=== PATIENT | female | born 1965 | race Caucasian/White ===

== ENCOUNTER → 2017-03-13 | Day surgery (SDC) | payer OTHER ==
[~2017-03-13] VITALS: Ht 154.9 cm; Wt 111.1 kg
[~2017-03-13] MED LIST: ASPIRIN81 M1 PO; BIOTIN PO; CILOXAN 5 ML5 M1 OP; CYMBALTA60 M1 PO; DURAGESIC50 MCG/HR TD; EC NAPROSYN500 MG PO; FLEXERIL10 MG PO; FLEXERIL5 MG PO; LAMISIL250 MG PO; MEDROL DOSEPAK4 MG PO; MORPHINE SULFAT15 MG PO; MOTRIN800 MG PO; MS CONTIN DEVI; MS CONTIN15 MG PO; NEURONTIN600 MG PO; NORFLEX100 MG PO; OXYCODONE15 MG PO; OXYCONTIN40 MG PO; PREDNISONE50 MG PO; PRILOSEC; PRILOSEC20 M2 PO; PROCARDIA XL30 MG PO; PROZAC40 M1 PO; REQUIP0.5 MG PO; VALIUM5 MG PO; VICODIN 5/500 505 MG PO; VICODIN ES 7501 TAB PO; ZYRTEC10 MG PO
--- NOTE | ~2017-03-13 | O ---
[place], [place] OPERATIVE NOTE NAME: JENNIFER RODRIGUEZ UNIT #: [id number] ROOM: DOCTOR: DEVANG ANDERSON MD BIRTHDATE: [birth year] DOS: 03/13/2017 PREOPERATIVE DIAGNOSIS: Chronic otitis media with effusion. POSTOPERATIVE DIAGNOSIS: Chronic otitis media with effusion. OPERATION: BMT. SURGEON: Dr. Anderson. ANESTHESIA: General. OPERATIVE FINDINGS AND PROCEDURE: The patient was taken to the operating room for BMT. Following induction of general anesthesia, the patient was positioned supine on the OR table and draped in the standard fashion for ear surgery. The surgical microscope was brought into the operative field. The right ear was examined. Myringotomy was performed. Standard Kory tympanostomy tube was inserted, and topical Ciprofloxacin drops were instilled. Next, the left ear was examined. Left myringotomy was performed. Standard Kory tympanostomy tube was inserted, and topical Ciprofloxacin drops were instilled. The patient tolerated the procedure well, was awakened, and transported to PACU in satisfactory condition. DEVANG ANDESRON MD CM:OPRECORD:OPERATIVE NOTE [id number] DEVANG ANDERSON MD 03/14/17 1149 interface
[2017-03-13 12:04] VITALS: BP 124/64
[2017-03-13 13:05] VITALS: BP 133/83
[2017-03-13 13:20] VITALS: BP 142/90
[2017-03-13 13:40] VITALS: BP 147/67
== END | disposition home or self-care (01) ==
LOC: SDC 03-08 12:30
DX: H65.493 Other chronic nonsuppurative otitis media, bilateral (principal); F32.9 Major depressive disorder, single episode, unspecified; K21.9 Gastro-esophageal reflux disease without esophagitis; Z98.890 Other specified postprocedural states; F17.210 Nicotine dependence, cigarettes, uncomplicated; Z98.51 Tubal ligation status

== ENCOUNTER 2017-09-21 07:39 | Emergency (ER) | payer MEDICARE ==
[~2017-09-21] VITALS: Ht 154.9 cm; Wt 112.0 kg
== END 2017-09-21 09:29 | disposition home or self-care (01) ==
LOC: ED 07:39
DX: R07.81 Pleurodynia (principal); F17.200 Nicotine dependence, unspecified, uncomplicated; E66.01 Morbid (severe) obesity due to excess calories; J44.9 Chronic obstructive pulmonary disease, unspecified; G89.29 Other chronic pain; Z98.890 Other specified postprocedural states; Z98.51 Tubal ligation status; Z79.899 Other long term (current) drug therapy; Z88.8 Allergy status to other drugs, medicaments and biological substances; Z79.82 Long term (current) use of aspirin

== ENCOUNTER → 2019-01-21 | Outpatient (CLI) | payer MEDICARE ==
[2019-01-22 08:10] LABS: ALPHA-1-ANTITRYPSIN, SERUM 160 mg/dL (90-200)
== END | disposition home or self-care (01) ==
LOC: LAB 12:15
PROVIDERS: Internal Medicine Critical Care Medicine
DX: J44.9 Chronic obstructive pulmonary disease, unspecified (principal)

== ENCOUNTER 2019-06-09 17:55 | Emergency (ER) | payer MEDICARE ==
[~2019-06-09] VITALS: Wt 113.4 kg
--- NOTE | ~2019-06-09 | EKG ---
[place], [place] ELECTROCARDIOGRAM REPORT NAME: JENNIFER RODRIGUEZ UNIT #: [id number] ROOM: DOCTOR: CALE DRAFT REPORT BIRTHDATE: [birth year] [facility] Test Date: 2019-06-09 Test Time: 20:07:08 Pat Name: JENNIFER RODRIGUEZ Department: Room: Gender: F Sightseeing Guide: SS RESP : 1965 Requested By: LEOLA BOWER Order Number: [id number] Reading MD: Delroy Landrum MD Measurements Intervals [place] Rate: 92 P: 49 MD: 168 QRS: 101 QRSD: 88 T: 37 QT: 386 QTc: 478 Interpretive Statements Sinus rhythm Right axis deviation Low voltage, precordial leads Borderline T abnormalities, anterior leads Electronically Signed On 06-10-2019 11:52:29 PDT by Delroy Landrum MD CM:EKGRPT:ELECTROCARDIOGRAM REPORT 06 115 LEOLA ORTEZ DRAFT REPORT LEOLA BOWER DO
[2019-06-09 19:40] LABS: BASO % 0.4 % (0.0-1.0); EOS # 0.1 10*3/uL (0.0-0.4); EOS % 1.4 % (1.0-4.0); HEMATOCRIT 41.6 % (37.0-47.0); HEMOGLOBIN 12.5 g/dl (12.0-16.0); LYMPH # 1.2 10*3/uL (1.3-4.4); LYMPH % 12.8 % (27.0-41.0); MEAN CELL VOLUME 84.7 fl (81.0-99.0); MEAN CORPUSCULAR HGB 25.5 pg (27.0-31.0); MEAN PLATELET VOLUME 10.9 fl (9.6-12.3); MONO # 0.3 10*3/uL (0.1-1.0); MONO % 3.1 % (3.0-9.0); NEUT # 7.4 10*3/uL (2.3-7.9); NEUT % 82.1 % (47.0-73.0); PLATELET COUNT AUTOMATED 147 10*3/uL (130-400); RED BLOOD COUNT 4.91 10*6/uL (4.10-5.10); RED CELL DISTRI WIDTH 17.1 % (0-14.5); WHITE BLOOD COUNT 9.1 10*3/uL (4.8-10.8)
[2019-06-09 19:55] LABS: ALBUMIN 3.4 gm/dl (3.1-4.5); ALKALINE PHOSPHATASE 88 U/L (45-117); BUN 7 mg/dl (7-24); CHLORIDE 104 mmol/L (98-107); CREATININE 0.93 mg/dL (0.55-1.02); LIPASE 38 U/L (73-393); POTASSIUM 4.4 mmol/L (3.5-5.1); SGOT/AST 23 IU/L (3-35); SGPT/ALT 20 U/L (12-78); SODIUM 140 mmol/L (136-145); TROPONIN I < 0.015 ng/ml (<0.045)
[2019-06-09 20:26] LABS: ACT PARTIAL THROMBO TIME 26.5 SECONDS (20.0-32.1); INTERNATIONAL NORM RATIO 1.1 (2.0-3.5)
[2019-06-09 20:43] LABS: BILIRUBIN NEGATIVE (NEGATIVE); BLOOD 1+ (NEGATIVE); CLARITY CLEAR (CLEAR); COLOR YELLOW (YELLOW); GLUCOSE NEGATIVE (NEGATIVE); KETONE NEGATIVE (NEGATIVE); LEUKO ESTERASE 1+ (NEGATIVE); NITRITE NEGATIVE (NEGATIVE); SPECIFIC GRAVITY <= 1.005 (1.005-1.030)
[2019-06-09 21:10] LABS: EPITHELIAL CELLS 21-30
[2019-06-09 21:11] LABS: BACTERIA 1+
== END 2019-06-09 22:00 | disposition home or self-care (01) ==
LOC: ED 17:55
PROVIDERS: Student in an Organized Health Care Education/Training Program
DX: E11.649 Type 2 diabetes mellitus with hypoglycemia without coma (principal); R79.1 Abnormal coagulation profile; F17.200 Nicotine dependence, unspecified, uncomplicated; Z88.8 Allergy status to other drugs, medicaments and biological substances

== ENCOUNTER 2019-06-29 14:10 | Inpatient (IN) | payer MEDICARE ==
[~2019-06-29] VITALS: Ht 154.9 cm; Wt 96.7 kg
--- NOTE | ~2019-06-29 | EKG ---
[place], [place] ELECTROCARDIOGRAM REPORT NAME: JENNIFER RODRIGUEZ UNIT #: [id number] ROOM: 530 DOCTOR: CALE DRAFT REPORT BIRTHDATE: [birth year] [facility] Test Date: 2019-06-29 Test Time: 15:12:15 Pat Name: JENNIFER RODRIGUEZ Department: Room: 530 Gender: F Breaker Machine Operator: ROGER : 1965 Requested By: THAI RAM Order Number: [id number] Reading MD: Delroy Landrum MD Measurements Intervals [place] Rate: 90 P: 50 VT: 175 QRS: 96 QRSD: 86 T: 29 QT: 364 QTc: 446 Interpretive Statements Sinus rhythm Borderline right axis deviation Low voltage, precordial leads Borderline T abnormalities, anterior leads Compared to ECG 06/09/2019 20:07:08 No significant changes Electronically Signed On 06-30-2019 10:56:02 PDT by Delroy Landrum MD CM:EKGRPT:ELECTROCARDIOGRAM REPORT 1512 1056 THAI MADSEN DRAFT REPORT THAI GLOVER
[2019-06-29 14:29] VITALS: BP 151/64
--- NOTE | 2019-06-29 14:40 | NUR ---
PATIENT DENIES ANY WOUNDS. PATIENT DOES HAVE SCAB TO R UPPER AMES AREA.
[2019-06-29 15:10] LABS: BASO % 0.5 % (0.0-1.0); EOS # 0.2 10*3/uL (0.0-0.4); EOS % 2.3 % (1.0-4.0); HEMATOCRIT 38.9 % (37.0-47.0); HEMOGLOBIN 11.7 g/dl (12.0-16.0); LYMPH # 1.4 10*3/uL (1.3-4.4); LYMPH % 17.5 % (27.0-41.0); MEAN CELL VOLUME 85.3 fl (81.0-99.0); MEAN CORPUSCULAR HGB 25.7 pg (27.0-31.0); MEAN CORPUSCULAR HGB CONC 30.1 g/dl (33.0-37.0); MEAN PLATELET VOLUME 9.4 fl (9.6-12.3); MONO # 0.3 10*3/uL (0.1-1.0); MONO % 3.5 % (3.0-9.0); NEUT # 5.9 10*3/uL (2.3-7.9); NEUT % 75.9 % (47.0-73.0); PLATELET COUNT AUTOMATED 164 10*3/uL (130-400); RED BLOOD COUNT 4.56 10*6/uL (4.10-5.10); RED CELL DISTRI WIDTH 17.3 % (0-14.5); WHITE BLOOD COUNT 7.8 10*3/uL (4.8-10.8)
[2019-06-29 15:20] LABS: ACT PARTIAL THROMBO TIME 25.6 SECONDS (20.0-32.1)
[2019-06-29 15:25] LABS: ALBUMIN 3.3 gm/dl (3.1-4.5); ALKALINE PHOSPHATASE 86 U/L (45-117); BUN 9 mg/dl (7-24); CHLORIDE 101 mmol/L (98-107); CREATININE 0.86 mg/dL (0.55-1.02); LIPASE 42 U/L (73-393); POTASSIUM 4.1 mmol/L (3.5-5.1); SGOT/AST 24 IU/L (3-35); SGPT/ALT 20 U/L (12-78); SODIUM 138 mmol/L (136-145); TOTAL PROTEIN 7.5 gm/dL (6.4-8.2)
--- NOTE | 2019-06-29 15:27 | NUR ---
GLUCOSE IS 43 AT THIS TIME CALLED CRITICAL RESULT AT THIS TIME. THAI GLOVER NOTIFIED.
[2019-06-29 15:28] LABS: TROPONIN I < 0.015 ng/ml (<0.045)
--- NOTE | 2019-06-29 17:10 | NUR ---
PATIENT BLOOD GLUCOSE IS 211 AT THIS TIME. THAI GLOVER NOTIFIED.
--- NOTE | 2019-06-29 18:24 | NUR ---
PATIENT TAKEN TO 5TH FLOOR AT THIS TIME BY THIS NURSE AND CLAIRE SPARROW.
[2019-06-29 18:28] VITALS: BP 135/83
--- NOTE | 2019-06-29 18:30 | NUR ---
Time: 1829 A 53 year old FEMALE PATIENT admitted to 5E under services of LENCHO VAUGNH DO. Pt. arrived via CART from ER. Chief complaint: LOW BLOOD SUGAR. PATIENT WAS UNSURE OF CURRENT MEDICATIONS, SHE STATED MEDICATION LIST WAS GIVEN TO THE DR. BABIN THEY MADE COPY OF IT. KEDAR MAHMOOD
--- NOTE | 2019-06-29 18:41 | NUR ---
MSADMTime: N A 53 year old FEMALE admitted to 5E under services of LENCHO VAUGHN DO. Pt. arrived via bed from ER. Chief complaint: HYPOGLYCEMIA. NICOL GONZALES
[2019-06-29 20:00] VITALS: BP 125/54
[2019-06-29] MEDS ORDERED: GLIPIZIDE10 M2 PO (21:40)
[2019-06-29] MEDS ORDERED: ASPIR LOW81 MG PO (21:40)
[2019-06-29] MEDS ORDERED: ROPINIROLE HYDRO3 MG PO (21:41)
[2019-06-29] MEDS ORDERED: PROAIR HFA8.5 GM INH (21:41)
[2019-06-29] MEDS ORDERED: GABAPENTIN600 MG PO (21:41)
[2019-06-29] MEDS ORDERED: AVPAK METFORMI500 M1 PO (21:42)
[2019-06-29] MEDS ORDERED: LEVEMIR FL100 UNIT/1 SC (21:44)
[2019-06-29] MEDS ORDERED: SPIRIVA RESPIMAT4 GM INH (21:44)
[2019-06-29] MEDS ORDERED: SYMB160 INH (21:44)
[2019-06-29] MEDS ORDERED: BUPROPION HCL200 MG PO (21:45)
[2019-06-29] MEDS ORDERED: TRINTELLIX20 MG PO (21:45)
[2019-06-29] MEDS ORDERED: DOCUSATE SOD100 MG PO (21:45)
[2019-06-29] MEDS ORDERED: HUMALOG100 UNIT/1 SQ (21:46)
[2019-06-29] MEDS ORDERED: PANTOPRAZOLE SO40 MG PO (21:46)
[2019-06-29] MEDS ORDERED: CHANTIX1 M1 PO (21:47)
[2019-06-29] MEDS ORDERED: 'CLONIDINE0.1 MG PO (21:47)
[2019-06-29] MEDS ORDERED: BACLOFEN5 MG PO (21:49)
[2019-06-30] VITALS: BP 108/56
--- NOTE | 2019-06-30 00:19 | NUR ---
24 HR. CHART CHECK COMPLETE.
[2019-06-30 00:20] LABS: BILIRUBIN NEGATIVE (NEGATIVE); BLOOD NEGATIVE (NEGATIVE); CLARITY SL CLOUDY (CLEAR); COLOR YELLOW (YELLOW); GLUCOSE NEGATIVE (NEGATIVE); KETONE NEGATIVE (NEGATIVE); LEUKO ESTERASE 2+ (NEGATIVE); NITRITE NEGATIVE (NEGATIVE); PH 6.5 (5.0-9.0); SPECIFIC GRAVITY 1.015 (1.005-1.030)
[2019-06-30 00:27] LABS: BACTERIA 1+; EPITHELIAL CELLS TNTC; WBC 21-30 wbc/hpf (0-5)
[2019-06-30 06:39] LABS: BASO % 0.4 % (0.0-1.0); EOS # 0.1 10*3/uL (0.0-0.4); EOS % 2.4 % (1.0-4.0); HEMATOCRIT 36.8 % (37.0-47.0); HEMOGLOBIN 11.1 g/dl (12.0-16.0); LYMPH # 1.3 10*3/uL (1.3-4.4); LYMPH % 25.7 % (27.0-41.0); MEAN CELL VOLUME 84.2 fl (81.0-99.0); MEAN CORPUSCULAR HGB 25.4 pg (27.0-31.0); MEAN CORPUSCULAR HGB CONC 30.2 g/dl (33.0-37.0); MEAN PLATELET VOLUME 10.4 fl (9.6-12.3); MONO # 0.2 10*3/uL (0.1-1.0); MONO % 3.9 % (3.0-9.0); NEUT # 3.3 10*3/uL (2.3-7.9); NEUT % 67.4 % (47.0-73.0); PLATELET COUNT AUTOMATED 148 10*3/uL (130-400); RED BLOOD COUNT 4.37 10*6/uL (4.10-5.10); RED CELL DISTRI WIDTH 17.1 % (0-14.5); WHITE BLOOD COUNT 4.9 10*3/uL (4.8-10.8)
[2019-06-30 06:45] LABS: ALBUMIN 3.2 gm/dl (3.1-4.5); ALKALINE PHOSPHATASE 82 U/L (45-117); BUN 8 mg/dl (7-24); CHLORIDE 103 mmol/L (98-107); CHOLESTEROL 161 mg/dL (<200); CREATININE 0.87 mg/dL (0.55-1.02); PHOSPHOROUS 4.4 mg/dL (2.5-4.9); POTASSIUM 4.3 mmol/L (3.5-5.1); SGOT/AST 25 IU/L (3-35); SGPT/ALT 20 U/L (12-78); SODIUM 138 mmol/L (136-145); TOTAL PROTEIN 7.2 gm/dL (6.4-8.2); TRIGLYCERIDES 121 mg/dl (<150); VLDL CHOLESTEROL 24 mg/dL (6-40)
[2019-06-30 06:46] LABS: HDL CHOLESTEROL 35 mg/dl (40-60); LDL CHOLESTEROL 102 mg/dL (9-159)
[2019-06-30 07:36] LABS: VITAMIN D, 25-HYDROXY 37.2 ng/mL (30-100)
[2019-06-30 08:00] VITALS: BP 135/46
--- NOTE | 2019-06-30 10:07 | NUR ---
Occupational therapy orders received this date, 06/30/19. Occupational therapy orders to be discharged at this time secondary to patient being independent in ADLs and functional transfers/mobility, per patient. Patient was educated on occupational therapy evaluation and stated "As long as my blood sugars okay, I'm fine. That's what I'm here for." Thank you for the referral. Roro Floyd OTR/Kelsy
--- NOTE | 2019-06-30 10:22 | NUR ---
PT RESTING IN BED. NO DISTRESS NOTED. NO VOICED C/O. WILL MONITOR
--- NOTE | 2019-06-30 11:12 | NUR ---
PHYSICAL THERAPY Physical therapy evaluation offered, screen complete. Patient stating, "I'm fine as long as my blood sugar is okay. That's what I'm here for." Patient reporting no PT needs at this time. Discharge PT orders. Thank you. Yuko Griffin,PT,DPT.
[2019-06-30 12:00] VITALS: BP 146/61
[2019-06-30] MEDS ORDERED: LEVEMIR FL100 UNIT/1 SC (13:31)
--- NOTE | 2019-06-30 15:31 | NUR ---
PT REQUESTED AND GIVEN TYLENOL FOR C/O HEADACHE WILL MONITOR
--- NOTE | 2019-06-30 15:34 | NUR ---
Discharge instructions reviewed with patient/family. Patient receptive and verbalizes understanding. Follow-up care arranged. Written instructions given to patient/family. LUPE EUGENE
== END 2019-06-30 15:34 | disposition home or self-care (01) | DRG 638 ==
LOC: ED 14:10 → EDHOLD 17:33 → 5E 18:10
PROVIDERS: Family Medicine; Physician Assistant; ADMIT Internal Medicine
DX: E11.649 Type 2 diabetes mellitus with hypoglycemia without coma (principal); Z68.41 Body mass index [BMI] 40.0-44.9, adult; I10 Essential (primary) hypertension; J44.9 Chronic obstructive pulmonary disease, unspecified; G25.81 Restless legs syndrome; E11.42 Type 2 diabetes mellitus with diabetic polyneuropathy; E55.9 Vitamin D deficiency, unspecified; K21.9 Gastro-esophageal reflux disease without esophagitis; E66.01 Morbid (severe) obesity due to excess calories; S80.811A Abrasion, right lower leg, initial encounter; S80.212A Abrasion, left knee, initial encounter; X58.XXXA Exposure to other specified factors, initial encounter; Y93.89 Activity, other specified; Y92.89 Other specified places as the place of occurrence of the external cause; Z79.4 Long term (current) use of insulin; Y99.8 Other external cause status; Z88.8 Allergy status to other drugs, medicaments and biological substances; Z98.891 History of uterine scar from previous surgery; Z98.51 Tubal ligation status; Z83.3 Family history of diabetes mellitus; Z79.82 Long term (current) use of aspirin; Z79.899 Other long term (current) drug therapy

== ENCOUNTER → 2019-07-18 | Outpatient (CLI) | payer MEDICARE ==
[~2019-07-18] MED LIST changes: +'CLONIDINE0.1 MG PO; +ASPIR LOW81 MG PO; +AVPAK METFORMI500 M1 PO; +BACLOFEN5 MG PO; +BUPROPION HCL200 MG PO; +CHANTIX1 M1 PO; +DOCUSATE SOD100 MG PO; +GABAPENTIN600 MG PO; +GLIPIZIDE10 M2 PO; +HUMALOG100 UNIT/1 SQ; +LEVEMIR FL100 UNIT/1 SC; +PANTOPRAZOLE SO40 MG PO; +PROAIR HFA8.5 GM INH; +ROPINIROLE HYDRO3 MG PO; +SPIRIVA RESPIMAT4 GM INH; +SYMB160 INH; +TRINTELLIX20 MG PO
--- NOTE | ~2019-07-18 | PF ---
[place], [place] PULMONARY FUNCTION TEST NAME[id number] UNIT #: [id number] ROOM: DOCTOR: COURTNEY DYSON MD,JCARLOS BIRTHDATE: [birth year] DOS: 07/18/2019 PULMONARY FUNCTION TEST Test was ordered by Rosales Lynn. HISTORY: The patient recorded as a 53-year-old female, height of 61 inches, weight of 214 pounds. The patient reported diagnosis of COPD. Symptoms reported as shortness of breath with exertion. The patient noted active tobacco use, half a pack of cigarettes per day for 45 years. SPIROMETRY: FVC recorded 2.07 liters as 69% predicted value. FEV1 was 1.40 liters, 57% predicted value. Post-bronchodilator, FEV1/FVC recorded 69%. No changes occurred postbronchodilator. Flow volume loop was suggestive of obstructive lung disease. LUNG VOLUME: Thoracic gas volume recorded as 93%, residual volume 129%, total lung capacity 95%. RV/TLC ratio 139%. The patient's lung diffusion noted mildly decreased without correction of carbon monoxide hemoglobin values. Mildly abnormal airway resistance and passive conductance were noted. FINAL IMPRESSION: Current test was noted finding consistent with moderate COPD. Clinical correlation would be advised. JCARLOS VALDEZ MD CM:PFREPORT:PULMONARY FUNCTION TEST 1251 1701 JCARLOS DYSON MD
== END | disposition home or self-care (01) ==
LOC: CP 11:53
DX: J44.9 Chronic obstructive pulmonary disease, unspecified (principal)

== ENCOUNTER 2019-09-22 11:23 | Inpatient (IN) | payer MEDICARE ==
[~2019-09-22] VITALS: Ht 154.9 cm; Wt 86.4 kg
[2019-09-22 11:26] VITALS: BP 130/69
[2019-09-22 11:45] LABS: BASO # 0.1 10*3/uL (0.0-0.1); BASO % 0.4 % (0.0-1.0); EOS # 0.1 10*3/uL (0.0-0.4); LYMPH # 2.6 10*3/uL (1.3-4.4); LYMPH % 20.8 % (27.0-41.0); MEAN CELL VOLUME 86.6 fl (81.0-99.0); MEAN PLATELET VOLUME 11.9 fl (9.6-12.3); MONO # 0.5 10*3/uL (0.1-1.0); MONO % 3.8 % (3.0-9.0); NEUT # 9.2 10*3/uL (2.3-7.9); NEUT % 73.5 % (47.0-73.0); PLATELET COUNT AUTOMATED 174 10*3/uL (130-400); RED BLOOD COUNT 4.62 10*6/uL (4.10-5.10); RED CELL DISTRI WIDTH 18.5 % (0-14.5); WHITE BLOOD COUNT 12.5 10*3/uL (4.8-10.8)
[2019-09-22 11:56] LABS: ACT PARTIAL THROMBO TIME 26.7 SECONDS (20.0-32.1); INTERNATIONAL NORM RATIO 1.1 (2.0-3.5)
[2019-09-22 12:03] LABS: ALBUMIN 3.3 gm/dl (3.1-4.5); ALKALINE PHOSPHATASE 95 U/L (45-117); BUN 9 mg/dl (7-24); CHLORIDE 101 mmol/L (98-107); CREATININE 1.16 mg/dL (0.55-1.02); POTASSIUM 3.6 mmol/L (3.5-5.1); SGOT/AST 38 IU/L (3-35); SGPT/ALT 23 U/L (12-78); SODIUM 136 mmol/L (136-145)
[2019-09-22 12:07] LABS: TROPONIN I < 0.015 ng/ml (<0.045)
[2019-09-22 13:15] VITALS: BP 129/71
[2019-09-22 14:00] VITALS: BP 130/68
--- NOTE | 2019-09-22 14:00 | NUR ---
A 54, admitted to , under the services of LENCHO Vaughn DO with a diagnosis of arf and hypoxia. Chief complaint is shortness of breath. Patient arrived via bed from ER. Monitor applied. Initial assessment completed. Vital signs taken and recorded. LENCHO VAUGHN DO notified of admission to the unit. Orders received. See assessment for past medical history, medications and allergies. Patient and/or family oriented to unit. [facility] visitation policy reviewed. Clothing/patient valuable form completed. MARCO BAINS
--- NOTE | 2019-09-22 14:25 | NUR ---
PT REFUSED ABG
--- NOTE | 2019-09-22 14:37 | NUR ---
NOTIFIED DR VALDEZ OF NEW CONSULT FOR ACUTE RESPITORY DISTRESS.NOTIFIED HIM THAT PT REFUSED ABG'S. PER DR VALDEZ I WAS TO RETURN AND TELL PT TO HAVE ABG'S DONE PER HIS REQUEST. UPON SPEAKING TO PT PT STATES "NO". PT REFUSES ABG'S AGAIN.
[2019-09-22] MEDS ORDERED: SYMB160 INH (15:42)
[2019-09-22] MEDS ORDERED: VITAMIN D32000 UNI1 PO (15:43)
[2019-09-22] MEDS ORDERED: LEVEMIR100 UNIT/1 SC (15:50)
--- NOTE | 2019-09-22 15:50 | NUR ---
MEDS RECONCILED AT BEDSIDE WITH PT AND MED CLAIM HISTORY.
--- NOTE | 2019-09-22 15:53 | NUR ---
NOTIFIED DR CAT'S MED REC COMPLETE.
[2019-09-22 16:00] VITALS: BP 128/68
--- NOTE | 2019-09-22 19:00 | NUR ---
ASSUMED CARE FOR THIS PT AT THIS TIME. PT RESTING QUIETLY IN BED. NO C/O VOICED. CALL LIGHT IN REACH.
[2019-09-22 20:00] VITALS: BP 121/65
[2019-09-23] VITALS: BP 110/58
[2019-09-23 06:22] LABS: BASO % 0.2 % (0.0-1.0); HEMATOCRIT 38.8 % (37.0-47.0); HEMOGLOBIN 11.2 g/dl (12.0-16.0); LYMPH # 0.7 10*3/uL (1.3-4.4); LYMPH % 12.3 % (27.0-41.0); MEAN CELL VOLUME 87.6 fl (81.0-99.0); MEAN CORPUSCULAR HGB 25.3 pg (27.0-31.0); MEAN CORPUSCULAR HGB CONC 28.9 g/dl (33.0-37.0); MEAN PLATELET VOLUME 11.6 fl (9.6-12.3); MONO # 0.1 10*3/uL (0.1-1.0); MONO % 0.9 % (3.0-9.0); NEUT # 4.6 10*3/uL (2.3-7.9); PLATELET COUNT AUTOMATED 148 10*3/uL (130-400); RED BLOOD COUNT 4.43 10*6/uL (4.10-5.10); RED CELL DISTRI WIDTH 18.5 % (0-14.5); WHITE BLOOD COUNT 5.3 10*3/uL (4.8-10.8)
[2019-09-23 06:23] LABS: BUN 11 mg/dl (7-24); CHLORIDE 106 mmol/L (98-107); CREATININE 0.81 mg/dL (0.55-1.02); PHOSPHOROUS 3.4 mg/dL (2.5-4.9); POTASSIUM 3.9 mmol/L (3.5-5.1); SODIUM 141 mmol/L (136-145)
[2019-09-23 08:00] VITALS: BP 128/88
--- NOTE | 2019-09-23 09:00 | NUR ---
Magnetic Observer in to talk to patient. Patient states lives at home with ex . There are few steps in the home. Physician: ralph harris [facility]acy: [facility] Home health services: none Patient's level of ADLs: INDEPENDENT Patient has working utilities: all working DME: none Follow-up physician's appointment after d/c: will be made by hospitalist nurse director upon discharge Does patient want to access PORTAL?: no Discharge plan discussed with patient, she lives at home with ex she is independent in adls and ambulation, she states she will return home when medically stable and denies any home needs. TYLER QUINTERO
[2019-09-23 12:00] VITALS: BP 129/77
--- NOTE | 2019-09-23 13:54 | NUR ---
PT TEETH DELIVERED TO HER BY JORGE ANDERSON.CURRENTLY IN PT MOUTH.
[2019-09-23 16:00] VITALS: BP 113/58
[2019-09-23 20:00] VITALS: BP 109/72
[2019-09-24] VITALS: BP 128/68
--- NOTE | 2019-09-24 04:46 | NUR ---
24 HR chart check completed.
[2019-09-24 05:07] LABS: EOS % 0.1 % (1.0-4.0); HEMOGLOBIN 11.1 g/dl (12.0-16.0); LYMPH # 0.9 10*3/uL (1.3-4.4); LYMPH % 12.6 % (27.0-41.0); MEAN CORPUSCULAR HGB CONC 29.2 g/dl (33.0-37.0); MEAN PLATELET VOLUME 10.4 fl (9.6-12.3); MONO # 0.1 10*3/uL (0.1-1.0); MONO % 1.9 % (3.0-9.0); NEUT # 5.9 10*3/uL (2.3-7.9); NEUT % 84.7 % (47.0-73.0); PLATELET COUNT AUTOMATED 138 10*3/uL (130-400); RED BLOOD COUNT 4.27 10*6/uL (4.10-5.10); RED CELL DISTRI WIDTH 18.9 % (0-14.5)
[2019-09-24 05:29] LABS: BUN 14 mg/dl (7-24); CHLORIDE 107 mmol/L (98-107); CREATININE 0.79 mg/dL (0.55-1.02); POTASSIUM 4.2 mmol/L (3.5-5.1); SODIUM 141 mmol/L (136-145)
[2019-09-24 08:00] VITALS: BP 128/75
--- NOTE | 2019-09-24 11:16 | NUR ---
PT ASSESSED FOR HOME OXYGEN. PT QUALIFIED PT AT REST SPO2 91% RA, HR 97, RR 16, B/P 122/72 PT AMBULATED SPO2 85-86% PLACED PT ON 2LNC PT AMBULATED SPO2 88-89% 2LN, INCREASED FIO2 TO 3LNC SPO2 90-92% 3L PT AT REST SPO2 95% 3LNC, HR 104, RR 21, B/P 144/[address] PAEZ NOTIFIED OF QUALIFICATION
[2019-09-24 12:00] VITALS: BP 105/67
[2019-09-24 16:00] VITALS: BP 117/62
[2019-09-24 20:00] VITALS: BP 116/53
[2019-09-25] VITALS: BP 123/61
[2019-09-25 05:36] LABS: BASO % 0.2 % (0.0-1.0); HEMATOCRIT 40.8 % (37.0-47.0); HEMOGLOBIN 11.7 g/dl (12.0-16.0); LYMPH # 0.9 10*3/uL (1.3-4.4); LYMPH % 14.7 % (27.0-41.0); MEAN CELL VOLUME 87.6 fl (81.0-99.0); MEAN CORPUSCULAR HGB 25.1 pg (27.0-31.0); MEAN CORPUSCULAR HGB CONC 28.7 g/dl (33.0-37.0); MEAN PLATELET VOLUME 10.8 fl (9.6-12.3); MONO # 0.2 10*3/uL (0.1-1.0); MONO % 2.5 % (3.0-9.0); NEUT # 5.2 10*3/uL (2.3-7.9); PLATELET COUNT AUTOMATED 150 10*3/uL (130-400); RED BLOOD COUNT 4.66 10*6/uL (4.10-5.10); RED CELL DISTRI WIDTH 18.6 % (0-14.5); WHITE BLOOD COUNT 6.3 10*3/uL (4.8-10.8)
[2019-09-25 05:45] LABS: BUN 21 mg/dl (7-24); CHLORIDE 103 mmol/L (98-107); CREATININE 0.89 mg/dL (0.55-1.02); POTASSIUM 4.4 mmol/L (3.5-5.1); SODIUM 139 mmol/L (136-145)
[2019-09-25 08:00] VITALS: BP 108/78
[2019-09-25 12:00] VITALS: BP 134/81
[2019-09-25 16:00] VITALS: BP 151/70
[2019-09-25 20:00] VITALS: BP 118/64
--- NOTE | 2019-09-25 22:00 | NUR ---
BLOOD SUGAR 182
[2019-09-26] VITALS: BP 120/60
--- NOTE | 2019-09-26 00:06 | NUR ---
24 HR chart check completed.
--- NOTE | 2019-09-26 02:31 | NUR ---
Patient resting quietly with no c/o discomfort. Respirations easy and regular. Vital signs stable. No overt distress. OXYGEN 3L VIA NC INTACT. CALL LIGHT WITHIN REACH HISSOM,NAYANA
--- NOTE | 2019-09-26 04:23 | NUR ---
Patient sleeping. Respirations relaxed and easy. [place] up . [place] on. NO S/S OF DISTRESS NOTED. OXYGEN 3L VIA NASAL CANNULA INTACT. CALL LIGHT WITHIN REACH. HISSOM,NAYANA
[2019-09-26 05:12] LABS: BUN 21 mg/dl (7-24); CHLORIDE 103 mmol/L (98-107); CREATININE 0.97 mg/dL (0.55-1.02); POTASSIUM 4.4 mmol/L (3.5-5.1); SODIUM 137 mmol/L (136-145)
--- NOTE | 2019-09-26 06:00 | NUR ---
BLOOD SUGAR 173
[2019-09-26 08:00] VITALS: BP 117/73
[2019-09-26 12:00] VITALS: BP 131/68
[2019-09-26 16:00] VITALS: BP 128/68
--- NOTE | 2019-09-26 19:00 | NUR ---
ASSUMED CARE FOR THIS PT AT THIS TIME. NO C/O VOICED. CALL LIGHT IN REACH.
[2019-09-26 20:00] VITALS: BP 117/57
[2019-09-27] VITALS: BP 127/65
--- NOTE | 2019-09-27 05:32 | NUR ---
24 HR chart check completed.
[2019-09-27 05:33] LABS: BASO % 0.1 % (0.0-1.0); EOS % 0.1 % (1.0-4.0); HEMATOCRIT 40.8 % (37.0-47.0); HEMOGLOBIN 12.1 g/dl (12.0-16.0); LYMPH # 0.8 10*3/uL (1.3-4.4); LYMPH % 11.2 % (27.0-41.0); MEAN CELL VOLUME 87.4 fl (81.0-99.0); MEAN CORPUSCULAR HGB 25.9 pg (27.0-31.0); MEAN CORPUSCULAR HGB CONC 29.7 g/dl (33.0-37.0); MEAN PLATELET VOLUME 11.2 fl (9.6-12.3); MONO # 0.2 10*3/uL (0.1-1.0); MONO % 2.3 % (3.0-9.0); NEUT # 6.3 10*3/uL (2.3-7.9); NEUT % 85.6 % (47.0-73.0); PLATELET COUNT AUTOMATED 148 10*3/uL (130-400); RED BLOOD COUNT 4.67 10*6/uL (4.10-5.10); RED CELL DISTRI WIDTH 18.3 % (0-14.5); WHITE BLOOD COUNT 7.4 10*3/uL (4.8-10.8)
[2019-09-27 05:50] LABS: BUN 18 mg/dl (7-24); CHLORIDE 101 mmol/L (98-107); CREATININE 0.84 mg/dL (0.55-1.02); PHOSPHOROUS 4.4 mg/dL (2.5-4.9); POTASSIUM 4.7 mmol/L (3.5-5.1); SODIUM 138 mmol/L (136-145)
[2019-09-27 08:00] VITALS: BP 124/64
[2019-09-27 12:00] VITALS: BP 121/56
--- NOTE | 2019-09-27 12:00 | NUR ---
CALL PLACED TO HOSPITALIST, ORDER REQUESTED FOR HOME O2 PER ALEX IN RESP, PATIENT QUALIFIES FOR HOME O2 AT 4LITERS WITH AMBULATION.
--- NOTE | 2019-09-27 12:21 | NUR ---
PT ASSESSED FOR HOME O2. BP: 121/56 SPO2 RESTING ON RA: 87% SPO2 AMBULATING ON RA: 82% PT AMBULATED ON O2 2 TO 4 L NC. PT REQUIRES 4 L NC WITH AMBULATION. SPO2 ON 4 L NC AMBULATIN% RR 22 AND HR RANGED FROM 122-110 DURING AMBULATION.
[2019-09-27] MEDS ORDERED: PREDNISONE10 MG PO (13:22)
[2019-09-27] MEDS ORDERED: LEVAQUIN750 M1 PO (13:22)
--- NOTE | 2019-09-27 15:40 | NUR ---
Discharge instructions reviewed with patient/family. Patient receptive and verbalizes understanding. Follow-up care arranged. Written instructions given to patient/family.Patient was educated on new prescriptions and follow up visits. Patient was wheeled from unit by staff member with all personal belongings accounted for. MARCELINA CARTWRIGHT
== END 2019-09-27 15:40 | disposition home or self-care (01) | DRG 871 ==
LOC: ED 11:23 → 4E 12:52 → EDHOLD 12:52 → 4E 13:19
PROVIDERS: Emergency Medicine; Internal Medicine; ADMIT Internal Medicine
DX: A41.9 Sepsis, unspecified organism (principal); J96.01 Acute respiratory failure with hypoxia; J18.9 Pneumonia, unspecified organism; J44.1 Chronic obstructive pulmonary disease with (acute) exacerbation; E87.2 Acidosis; J44.0 Chronic obstructive pulmonary disease with (acute) lower respiratory infection; R65.20 Severe sepsis without septic shock; K21.9 Gastro-esophageal reflux disease without esophagitis; F41.1 Generalized anxiety disorder; E78.00 Pure hypercholesterolemia, unspecified; E11.42 Type 2 diabetes mellitus with diabetic polyneuropathy; G25.81 Restless legs syndrome; I10 Essential (primary) hypertension; E66.9 Obesity, unspecified; Z79.4 Long term (current) use of insulin; Z88.8 Allergy status to other drugs, medicaments and biological substances; Z79.84 Long term (current) use of oral hypoglycemic drugs; Z83.3 Family history of diabetes mellitus; Z82.49 Family history of ischemic heart disease and other diseases of the circulatory system; Z68.34 Body mass index [BMI] 34.0-34.9, adult

== ENCOUNTER 2020-04-02 12:43 | Inpatient (IN) | payer MEDICARE ==
[~2020-04-02] VITALS: Ht 154.9 cm; Wt 68.0 kg
[~2020-04-02 12:43] MED LIST changes: -ASPIR LOW81 MG PO; +ASPIRIN ADULT L81 M1 PO; -AVPAK METFORMI500 M1 PO; +LEVAQUIN750 M1 PO; +LEVEMIR100 UNIT/1 SC; +METFORMIN HCL500 M2 PO; +PREDNISONE10 MG PO; +VITAMIN D32000 UNI1 PO
[2020-04-02 13:08] LABS: HEMATOCRIT 39.3 % (37.0-47.0); MEAN CELL VOLUME 87.7 fl (81.0-99.0); MEAN CORPUSCULAR HGB 26.8 pg (27.0-31.0); MEAN CORPUSCULAR HGB CONC 30.5 g/dl (33.0-37.0); MEAN PLATELET VOLUME 10.3 fl (9.6-12.3); PLATELET COUNT AUTOMATED 192 10*3/uL (130-400); RED BLOOD COUNT 4.48 10*6/uL (4.10-5.10); RED CELL DISTRI WIDTH 17.2 % (0-14.5); WHITE BLOOD COUNT 23.7 10*3/uL (4.8-10.8)
--- NOTE | 2020-04-02 13:15 | NUR ---
PTS IV THAT EMS STARTED BLEW, ANOTHER IV WAS PLACED IN RAC BY THIS RN
[2020-04-02 13:22] VITALS: BP 106/77
[2020-04-02 13:22] LABS: ALBUMIN 3.3 gm/dl (3.1-4.5); ALKALINE PHOSPHATASE 73 U/L (45-117); BUN 11 mg/dl (7-24); CHLORIDE 104 mmol/L (98-107); LIPASE 33 U/L (73-393); POTASSIUM 3.9 mmol/L (3.5-5.1); SGOT/AST 9 IU/L (3-35); SGPT/ALT 16 U/L (12-78); SODIUM 139 mmol/L (136-145); TOTAL PROTEIN 7.1 gm/dL (6.4-8.2)
[2020-04-02 13:23] LABS: INTERNATIONAL NORM RATIO 1.1 (2.0-3.5); TROPONIN I < 0.015 ng/ml (<0.045)
[2020-04-02 13:42] LABS: PLATELET SUFFICIENCY NORMAL (NORMAL); TOTAL CELLS COUNTED 100 #CELLS
[2020-04-02 14:54] VITALS: BP 111/60
--- NOTE | 2020-04-02 14:55 | NUR ---
THIS RN HAS BEEN IN ROOM WITH PT TO MONITOR HER CLOSELY. AFTER RECIEVING ATIVAN PTS TREMORS HAS DECREASED A MODERATE AMOUNT.
[2020-04-02 15:27] LABS: BILIRUBIN NEGATIVE (NEGATIVE); BLOOD NEGATIVE (NEGATIVE); CLARITY CLEAR (CLEAR); COLOR YELLOW (YELLOW); GLUCOSE 3+ (NEGATIVE); KETONE NEGATIVE (NEGATIVE); SPECIFIC GRAVITY 1.015 (1.005-1.030)
[2020-04-02 15:28] LABS: BACTERIA 1+; EPITHELIAL CELLS 51-100; LEUKO ESTERASE NEGATIVE (NEGATIVE); NITRITE NEGATIVE (NEGATIVE); RBC 0-2 rbc/hpf (0-2); WBC 0-2 wbc/hpf (0-5)
--- NOTE | 2020-04-02 15:33 | NUR ---
PT RESTING IN BED WITH EYES CLOSED. IN NO ACUTE DISTRESS
[2020-04-02 16:20] VITALS: BP 102/60
--- NOTE | 2020-04-02 16:20 | NUR ---
A 54, admitted to , under the services of ALFONSO Alan DO with a diagnosis of SEPSIS. Patient arrived via stretcher from ER, DROWSY AFTER ATIVAN. Monitor applied. Initial assessment completed. Vital signs taken and recorded. ALFONSO ALAN DO notified of admission to the unit AND PATIENT SEEN. Orders received. See assessment for past medical history, medications and allergies. Patient and/or family oriented to unit. [facility] JOSÉ MIGUEL GORMAN
--- NOTE | 2020-04-02 16:52 | NUR ---
COVID SWAB WALKED TO LAB
[2020-04-02] MEDS ORDERED: WELLBUTRIN SR200 MG PO (16:53)
[2020-04-02] MEDS ORDERED: LAMICTAL100 MG PO (16:54)
[2020-04-02] MEDS ORDERED: JARDIANCE25 MG PO (16:55)
[2020-04-02] MEDS ORDERED: BYDUREON B2 MG/0.85 SQ (16:56)
--- NOTE | 2020-04-02 16:57 | NUR ---
MED REC UPDATED PER PATIENTS PHARMACY BUT UNABLE TO REVIEW WITH THE PATIENT D/T LETHARGIC UPON ARRIVAL
[2020-04-02] MEDS ORDERED: LIPITOR20 MG PO (17:53)
--- NOTE | 2020-04-02 18:11 | NUR ---
DR RASHID MADE AWARE OF MED REC UPDATED
[2020-04-02 18:13] LABS: ABG BASE EXCESS 2.2 mmol/L (-2.0-2.0); ARTERIAL BLOOD GAS PH 7.379 (7.35-7.45)
[2020-04-02 20:00] VITALS: BP 130/53
--- NOTE | 2020-04-02 20:05 | NUR ---
CONSULTED WITH CURRENT ABG RESULTS ORDERED BIPAP 16/10 ABG REPEAT IN 1 HOUR
--- NOTE | 2020-04-02 20:10 | NUR ---
PLACED PATIENT ON BIPAP PER ORDER. 16/10, 40% O2.ABG IN ONE HOUR. WILL CONTINUE TO MONITOR
--- NOTE | 2020-04-02 21:00 | NUR ---
BREANA ZHAO CONSULTED FOR INFECTIOUS DISEASE, ORDERED BLOOD CULTURE WELL URINE CULTURE FOR LEGIONELLE AND STREP PNEUMONIA
--- NOTE | 2020-04-02 21:21 | NUR ---
CALLED IN, UPDATED ON PATIENT CONDITION WILL CALL BACK IN THE MORNING
[2020-04-02 21:31] LABS: ABG BASE EXCESS 1.5 mmol/L (-2.0-2.0); ARTERIAL BLOOD GAS PH 7.351 (7.35-7.45)
--- NOTE | 2020-04-02 22:18 | NUR ---
CRANBERRY JUICE GIVEN FOR BS OF 51 WILL RECHECK IN 30 MINUTES
--- NOTE | 2020-04-02 22:55 | NUR ---
1AMP D50 GIVEN FOR BLOOD SUGAR OF 53
--- NOTE | 2020-04-02 23:30 | NUR ---
BLOOD SUGAR RECHECKED 89
[2020-04-03] VITALS: BP 96/46
[2020-04-03 04:00] VITALS: BP 102/66
--- NOTE | 2020-04-03 05:25 | NUR ---
PATIENT REFUSES BIPAP AT THIS TIME, ON 3L NC WITH 02 SATURATION OF 95%. RESPIRATORY THERAPY NOTIFED.
[2020-04-03 05:36] LABS: BASO # 0.1 10*3/uL (0.0-0.1); BASO % 0.4 % (0.0-1.0); EOS # 0.3 10*3/uL (0.0-0.4); EOS % 2.1 % (1.0-4.0); HEMATOCRIT 37.9 % (37.0-47.0); LYMPH # 1.8 10*3/uL (1.3-4.4); LYMPH % 14.6 % (27.0-41.0); MEAN CELL VOLUME 88.6 fl (81.0-99.0); MEAN CORPUSCULAR HGB 26.4 pg (27.0-31.0); MEAN CORPUSCULAR HGB CONC 29.8 g/dl (33.0-37.0); MEAN PLATELET VOLUME 9.9 fl (9.6-12.3); MONO # 0.4 10*3/uL (0.1-1.0); MONO % 3.1 % (3.0-9.0); NEUT # 9.8 10*3/uL (2.3-7.9); NEUT % 79.1 % (47.0-73.0); PLATELET COUNT AUTOMATED 151 10*3/uL (130-400); RED BLOOD COUNT 4.28 10*6/uL (4.10-5.10); RED CELL DISTRI WIDTH 17.2 % (0-14.5); WHITE BLOOD COUNT 12.4 10*3/uL (4.8-10.8)
--- NOTE | 2020-04-03 05:41 | NUR ---
Nurse called and informed us that Miss Milian took off her BiPap and is refusing to go back on. Pt is on 3L. ABG will be drawn here this morning. Pt did wear BiPap from 8PM until present time.
[2020-04-03 05:47] LABS: ALBUMIN 2.9 gm/dl (3.1-4.5); ALKALINE PHOSPHATASE 63 U/L (45-117); BUN 9 mg/dl (7-24); CHLORIDE 104 mmol/L (98-107); POTASSIUM 3.7 mmol/L (3.5-5.1); SGOT/AST 8 IU/L (3-35); SGPT/ALT 14 U/L (12-78); SODIUM 140 mmol/L (136-145); TOTAL PROTEIN 6.8 gm/dL (6.4-8.2)
--- NOTE | 2020-04-03 06:41 | NUR ---
JUICE GIVEN TO PATIENT FOR BLOOD SURGAR 61.
[2020-04-03 07:34] LABS: ABG BASE EXCESS 1.8 mmol/L (-2.0-2.0); ARTERIAL BLOOD GAS PH 7.383 (7.35-7.45)
[2020-04-03 08:00] VITALS: BP 107/53
--- NOTE | 2020-04-03 08:10 | NUR ---
pt fnot on bipap at this time
--- NOTE | 2020-04-03 11:06 | NUR ---
Employment Office Clerk in to talk to patient. Patient states lives at HOME with EX AND SON. There are 6 steps in the home. Physician: KOFI ABRAHAM [facility]: [facility] Home health services: NONE Patient's level of ADLs: INDEPENDENT Patient has working utilities: YES DME: OXYGEN FROM [facility] Follow-up physician's appointment after d/c: WILL BE MADE BY RN HOSPITALIST COORDINATOR Does patient want to access PORTAL?: NO Discharge plan BLOCK MAKING MACHINE OPERATOR SPOKE WITH THE PATIENT VIA PHONE. PATIENT STATED THAT SHE RESIDES WITH HER EX AND SON. PATIENT STATED THAT SHE ONLY WEARS OXYGEN AT NIGHT FROM [facility]. PATIENT DENIES ANY NEEDS AT THI TIME AND PLANS ON RETURNING HOME UPON DISCHARGE. DERIK MIRANDA
[2020-04-03 12:00] VITALS: BP 114/57
[2020-04-03 16:00] VITALS: BP 103/58
[2020-04-03 20:00] VITALS: BP 123/68
--- NOTE | 2020-04-03 20:00 | NUR ---
Patient resting quietly with no c/o discomfort. Respirations easy and regular. Vital signs stable. No overt distress. RADHA BURR
[2020-04-04] VITALS: BP 129/66
--- NOTE | 2020-04-04 00:04 | NUR ---
PATIENT REFUSING TO WEAR BIPAP. STATED "AIN'T NO WAY I'M WEARING THAT. I'M GOOD."
--- NOTE | 2020-04-04 01:00 | NUR ---
24 HR chart check completed.
[2020-04-04 04:00] VITALS: BP 128/69
[2020-04-04 06:10] LABS: BASO % 0.5 % (0.0-1.0); EOS # 0.2 10*3/uL (0.0-0.4); EOS % 3.2 % (1.0-4.0); HEMATOCRIT 36.6 % (37.0-47.0); LYMPH # 1.2 10*3/uL (1.3-4.4); LYMPH % 20.3 % (27.0-41.0); MEAN CELL VOLUME 85.9 fl (81.0-99.0); MEAN CORPUSCULAR HGB 26.8 pg (27.0-31.0); MEAN CORPUSCULAR HGB CONC 31.1 g/dl (33.0-37.0); MEAN PLATELET VOLUME 10.5 fl (9.6-12.3); MONO # 0.2 10*3/uL (0.1-1.0); MONO % 4.1 % (3.0-9.0); PLATELET COUNT AUTOMATED 143 10*3/uL (130-400); RED BLOOD COUNT 4.26 10*6/uL (4.10-5.10); RED CELL DISTRI WIDTH 16.8 % (0-14.5); WHITE BLOOD COUNT 5.7 10*3/uL (4.8-10.8)
[2020-04-04 06:26] LABS: BUN 9 mg/dl (7-24); CHLORIDE 105 mmol/L (98-107); CREATININE 0.68 mg/dL (0.55-1.02); POTASSIUM 4.1 mmol/L (3.5-5.1); SGOT/AST 13 IU/L (3-35); SGPT/ALT 13 U/L (12-78); SODIUM 140 mmol/L (136-145); TOTAL PROTEIN 6.8 gm/dL (6.4-8.2)
[2020-04-04 06:28] LABS: ALKALINE PHOSPHATASE 58 U/L (45-117); LDH 117 U/L (84-246)
[2020-04-04 08:00] VITALS: BP 143/81
[2020-04-04 09:51] LABS: ABG BASE EXCESS 5.8 mmol/L (-2.0-2.0); ARTERIAL BLOOD GAS PH 7.448 (7.35-7.45)
[2020-04-04 12:00] VITALS: BP 125/72
[2020-04-04 16:00] VITALS: BP 125/71
[2020-04-04 20:00] VITALS: BP 138/69
--- NOTE | 2020-04-04 20:00 | NUR ---
PT RESTING IN BED AWAKE, A&OX3, PLEASANT AND COOPERATIVE. RESP NONLABORED. NO ACUTE DISTRESS NOTED. DENIES ANY PAIN OR DISCOMFORT AT THIS TIME. HEPLOCKS PATENT. NO S/S OF HYPO/HYPERGLYCEMIA NOTED. ISOLATIONS PRECAUTIONS MAINTAINED.
[2020-04-05] VITALS: BP 132/71
--- NOTE | 2020-04-05 00:24 | NUR ---
PATIENT REFUSING BIPAP
[2020-04-05 05:57] LABS: BASO % 0.7 % (0.0-1.0); EOS # 0.2 10*3/uL (0.0-0.4); EOS % 3.2 % (1.0-4.0); HEMATOCRIT 38.6 % (37.0-47.0); LYMPH # 1.4 10*3/uL (1.3-4.4); LYMPH % 22.9 % (27.0-41.0); MEAN CELL VOLUME 86.4 fl (81.0-99.0); MEAN CORPUSCULAR HGB 26.6 pg (27.0-31.0); MEAN CORPUSCULAR HGB CONC 30.8 g/dl (33.0-37.0); MEAN PLATELET VOLUME 10.7 fl (9.6-12.3); MONO # 0.2 10*3/uL (0.1-1.0); MONO % 3.9 % (3.0-9.0); NEUT % 67.9 % (47.0-73.0); PLATELET COUNT AUTOMATED 155 10*3/uL (130-400); RED BLOOD COUNT 4.47 10*6/uL (4.10-5.10); RED CELL DISTRI WIDTH 16.9 % (0-14.5); WHITE BLOOD COUNT 5.9 10*3/uL (4.8-10.8)
[2020-04-05 05:59] LABS: ALBUMIN 3.3 gm/dl (3.1-4.5); ALKALINE PHOSPHATASE 64 U/L (45-117); BUN 11 mg/dl (7-24); CHLORIDE 103 mmol/L (98-107); CREATININE 0.64 mg/dL (0.55-1.02); LDH 118 U/L (84-246); POTASSIUM 3.9 mmol/L (3.5-5.1); SGOT/AST 12 IU/L (3-35); SGPT/ALT 15 U/L (12-78); SODIUM 137 mmol/L (136-145); TOTAL PROTEIN 7.2 gm/dL (6.4-8.2)
[2020-04-05 08:00] VITALS: BP 130/78
[2020-04-05 12:00] VITALS: BP 131/65
--- NOTE | 2020-04-05 12:41 | NUR ---
PATIENT ASKING WHEN SHE GETS TO LEAVE, CALL PLACED TO HOSPITALIST LINE SPOKE WITH DR. RASHID, I ADVISED WHEN DR. VALDEZ WAS HERE HE VERSED PATIENT COULD BE DISCHARGED TO HOME TO SELF QUARENTINE, AND RESULT OF COVID REPEAT TEST COULD BE CALLED TO HER.
[2020-04-05] MEDS ORDERED: AVPAK AZITHROM250 M1 PO (13:14)
[2020-04-05] MEDS ORDERED: DOXYCYCLINE100 M3 PO (13:14)
--- NOTE | 2020-04-05 13:50 | NUR ---
Discharge instructions reviewed with patient/family. Patient receptive and verbalizes understanding. Follow-up care arranged. Written instructions given to patient/family, reviewed medications, reviewed importance of medications to be picked up at [facility], advised family should pickle solution maker as she is to go straight home and quarentine. Versed understanding, removed IV, removed telemetry. provided mask and taken out via w/c by staff. KEDAR MAHMOOD
== END 2020-04-05 13:50 | disposition home or self-care (01) | DRG 871 ==
LOC: ED 12:43 → 4E 14:10 → EDHOLD 14:10 → 4E 14:15
PROVIDERS: Emergency Medicine; Internal Medicine; Internal Medicine Critical Care Medicine; ADMIT Family Medicine
PROC: 5A09357 Assistance with Respiratory Ventilation, Less than 24 Consecutive Hours, Continuous Positive Airway Pressure (ICD-10-PCS; principal; 2020-04-02)
DX: A41.9 Sepsis, unspecified organism (principal); J18.9 Pneumonia, unspecified organism; J96.01 Acute respiratory failure with hypoxia; E11.40 Type 2 diabetes mellitus with diabetic neuropathy, unspecified; R65.20 Severe sepsis without septic shock; R79.82 Elevated C-reactive protein (CRP); E66.9 Obesity, unspecified; J43.9 Emphysema, unspecified; R91.8 Other nonspecific abnormal finding of lung field; I10 Essential (primary) hypertension; G25.81 Restless legs syndrome; R59.0 Localized enlarged lymph nodes; E78.00 Pure hypercholesterolemia, unspecified; F41.1 Generalized anxiety disorder; F32.9 Major depressive disorder, single episode, unspecified; E55.9 Vitamin D deficiency, unspecified; K21.9 Gastro-esophageal reflux disease without esophagitis; Z79.4 Long term (current) use of insulin; Z98.891 History of uterine scar from previous surgery; Z87.891 Personal history of nicotine dependence; Z83.3 Family history of diabetes mellitus; Z88.8 Allergy status to other drugs, medicaments and biological substances; Z91.09 Other allergy status, other than to drugs and biological substances; Z79.899 Other long term (current) drug therapy; Z79.82 Long term (current) use of aspirin; Z82.49 Family history of ischemic heart disease and other diseases of the circulatory system; Z68.28 Body mass index [BMI] 28.0-28.9, adult; Z20.828 Contact with and (suspected) exposure to other viral communicable diseases

== ENCOUNTER → 2020-08-23 | Outpatient (CLI) | payer MEDICARE ==
[~2020-08-23] MED LIST changes: +AVPAK AZITHROM250 M1 PO; +BYDUREON B2 MG/0.85 SQ; +CELEXA20 MG PO; +DOXYCYCLINE100 M3 PO; +HYDROMORPH IV; +JARDIANCE25 MG PO; +LAMICTAL100 MG PO; +LIPITOR20 MG PO; +PROTONIX40 MG PO; +WELLBUTRIN SR200 MG PO; +ZITHROMAX250 MG PO
== END | disposition home or self-care (01) ==
LOC: MRI 08-16 09:00
PROVIDERS: ATTEND Nurse Practitioner Family
DX: H74.8X3 Other specified disorders of middle ear and mastoid, bilateral (principal); R41.3 Other amnesia; R26.81 Unsteadiness on feet; R53.1 Weakness

== ENCOUNTER → 2021-02-15 | Outpatient (CLI) | payer MEDICARE ==
[2021-02-15 12:42] LABS: BUN 16 mg/dl (7-24); CHLORIDE 105 mmol/L (98-107); CHOLESTEROL 155 mg/dL (<200); CREATININE 0.74 mg/dL (0.55-1.02); POTASSIUM 3.8 mmol/L (3.5-5.1); SGOT/AST 14 IU/L (3-35); SGPT/ALT 18 U/L (12-78); SODIUM 140 mmol/L (136-145); TOTAL PROTEIN 7.6 gm/dL (6.4-8.2); TRIGLYCERIDES 96 mg/dl (<150); VLDL CHOLESTEROL 19 mg/dL (6-40)
[2021-02-15 12:48] LABS: ALKALINE PHOSPHATASE 86 U/L (45-117); FREE T4 1.33 ng/dl (0.76-1.46); HDL CHOLESTEROL 58 mg/dl (40-60); LDL CHOLESTEROL 78 mg/dL (9-159)
[2021-02-16 10:07] LABS: CREATININE,URINE 131.3 mg/dL (Not Estab.)
== END | disposition home or self-care (01) ==
LOC: LAB 11:30
PROVIDERS: ATTEND Internal Medicine Endocrinology, Diabetes & Metabolism
DX: E11.65 Type 2 diabetes mellitus with hyperglycemia (principal); E16.2 Hypoglycemia, unspecified; I10 Essential (primary) hypertension; E55.9 Vitamin D deficiency, unspecified; E78.2 Mixed hyperlipidemia

== ENCOUNTER → 2021-03-03 | Outpatient (CLI) | payer MEDICARE | END | disposition home or self-care (01) | LOC: RAD 12:29 | PROVIDERS: ATTEND Nurse Practitioner Family | DX: M19.012 Primary osteoarthritis, left shoulder (principal); M25.712 Osteophyte, left shoulder; M25.812 Other specified joint disorders, left shoulder ==

== ENCOUNTER → 2021-04-01 | Outpatient (CLI) | payer MEDICARE | END | disposition home or self-care (01) | LOC: CARD 10:18 | PROVIDERS: ATTEND Nurse Practitioner Family | DX: Z01.818 Encounter for other preprocedural examination (principal); I10 Essential (primary) hypertension; I25.2 Old myocardial infarction ==

== ENCOUNTER → 2021-04-07 | Outpatient (CLI) | payer MEDICARE ==
[2021-04-07 12:32] LABS: MEAN CELL VOLUME 91.3 fl (81.0-99.0); MEAN CORPUSCULAR HGB CONC 32.8 g/dl (33.0-37.0); MEAN PLATELET VOLUME 10.9 fl (9.6-12.3); RED BLOOD COUNT 5.04 10*6/uL (4.10-5.10); RED CELL DISTRI WIDTH 13.2 % (0-14.5); WHITE BLOOD COUNT 6.8 10*3/uL (4.8-10.8)
[2021-04-07 12:45] LABS: BUN 10 mg/dl (7-24); CHLORIDE 104 mmol/L (98-107); CREATININE 0.72 mg/dL (0.55-1.02); POTASSIUM 4.5 mmol/L (3.5-5.1); SODIUM 141 mmol/L (136-145)
[2021-04-07 13:19] LABS: BILIRUBIN Negative (Negative); BLOOD Negative (Negative); CLARITY Clear (Clear); COLOR Yellow (Yellow); GLUCOSE Negative (Negative); KETONE Negative (Negative); LEUKO ESTERASE Trace (Negative); NITRITE Negative (Negative); PH 6.5 (4.5-8.0)
[2021-04-07 13:40] LABS: BACTERIA 2+; MUCOUS 1+
== END | disposition home or self-care (01) ==
LOC: LAB 12:10
PROVIDERS: ATTEND Anesthesiology Addiction Medicine
DX: N39.0 Urinary tract infection, site not specified (principal); M54.9 Dorsalgia, unspecified; M79.606 Pain in leg, unspecified; M79.609 Pain in unspecified limb

== ENCOUNTER → 2021-05-13 | Outpatient (CLI) | payer OTHER | END | disposition home or self-care (01) | LOC: RAD 02:06 | PROVIDERS: ATTEND Orthopaedic Surgery | DX: M19.012 Primary osteoarthritis, left shoulder (principal); M25.711 Osteophyte, right shoulder; M25.812 Other specified joint disorders, left shoulder ==

== ENCOUNTER → 2021-08-08 | Outpatient (CLI) | payer OTHER | END | disposition home or self-care (01) | LOC: ORTHO 00:32 | PROVIDERS: ATTEND Orthopaedic Surgery | DX: M19.041 Primary osteoarthritis, right hand (principal); M77.8 Other enthesopathies, not elsewhere classified ==

== ENCOUNTER → 2021-09-08 | Day surgery (SDC) | payer OTHER ==
[~2021-09-08] VITALS: Ht 154.9 cm; Wt 73.9 kg
[~2021-09-08] MED LIST changes: +CYMBALTA60 MG PO; +VITAMIN B121000 MC1 PO
[2021-09-08 08:16] VITALS: BP 140/66
[2021-09-08 09:35] VITALS: BP 92/49
[2021-09-08 09:47] VITALS: BP 104/56
[2021-09-08 10:05] VITALS: BP 106/60
== END | disposition home or self-care (01) ==
LOC: SDC 09-02 14:00
PROVIDERS: ATTEND Orthopaedic Surgery
DX: M65.311 Trigger thumb, right thumb (principal); J44.9 Chronic obstructive pulmonary disease, unspecified; K21.9 Gastro-esophageal reflux disease without esophagitis; F32.9 Major depressive disorder, single episode, unspecified; E11.9 Type 2 diabetes mellitus without complications; G25.81 Restless legs syndrome; F17.210 Nicotine dependence, cigarettes, uncomplicated; Z79.899 Other long term (current) drug therapy; Z20.822 Contact with and (suspected) exposure to COVID-19

== ENCOUNTER → 2022-05-08 | Outpatient (CLI) | payer OTHER ==
[~2022-05-08] MED LIST changes: +FENTANYL PF
== END | disposition home or self-care (01) ==
LOC: ORTHO 05:13
PROVIDERS: ATTEND Orthopaedic Surgery
DX: M19.041 Primary osteoarthritis, right hand (principal)

== ENCOUNTER → 2022-05-18 | Day surgery (SDC) | payer OTHER ==
[~2022-05-18] VITALS: Ht 154.9 cm; Wt 90.7 kg
[2022-05-18 06:59] VITALS: BP 115/83
[2022-05-18 08:01] VITALS: BP 122/79
[2022-05-18 08:16] VITALS: BP 102/68
[2022-05-18 08:31] VITALS: BP 107/84
== END | disposition home or self-care (01) ==
LOC: SDC 05-15 13:15
PROVIDERS: ATTEND Orthopaedic Surgery
DX: M65.841 Other synovitis and tenosynovitis, right hand (principal); K21.9 Gastro-esophageal reflux disease without esophagitis; F32.9 Major depressive disorder, single episode, unspecified; J44.9 Chronic obstructive pulmonary disease, unspecified; E11.9 Type 2 diabetes mellitus without complications; G51.0 Bell's palsy; F17.210 Nicotine dependence, cigarettes, uncomplicated; E78.5 Hyperlipidemia, unspecified; G25.81 Restless legs syndrome; I73.00 Raynaud's syndrome without gangrene; Z79.899 Other long term (current) drug therapy

== ENCOUNTER → 2022-05-18 | Outpatient (CLI) | payer OTHER ==
[2022-05-18 10:02] LABS: BASO % 0.4 % (0.0-1.0); EOS # 0.4 10*3/uL (0.0-0.4); EOS % 4.5 % (1.0-4.0); HEMATOCRIT 43.1 % (37.0-47.0); LYMPH # 1.7 10*3/uL (1.3-4.4); LYMPH % 16.8 % (27.0-41.0); MEAN CELL VOLUME 89.4 fl (81.0-99.0); MEAN CORPUSCULAR HGB 29.3 pg (27.0-31.0); MEAN CORPUSCULAR HGB CONC 32.7 g/dl (33.0-37.0); MEAN PLATELET VOLUME 11.8 fl (9.6-12.3); MONO # 0.4 10*3/uL (0.1-1.0); MONO % 4.4 % (3.0-9.0); NEUT # 7.2 10*3/uL (2.3-7.9); NEUT % 73.1 % (47.0-73.0); PLATELET COUNT AUTOMATED 177 10*3/uL (130-400); RED BLOOD COUNT 4.82 10*6/uL (4.10-5.10); RED CELL DISTRI WIDTH 12.8 % (0-14.5); WHITE BLOOD COUNT 9.9 10*3/uL (4.8-10.8)
[2022-05-18 10:15] LABS: BUN 7 mg/dl (7-24); CHLORIDE 105 mmol/L (98-107); CHOLESTEROL 136 mg/dL (<200); CREATININE 0.84 mg/dL (0.55-1.02); IRON 52 ug/dL (50-170); POTASSIUM 4.3 mmol/L (3.5-5.1); SGOT/AST 13 IU/L (3-35); SGPT/ALT 17 U/L (12-78); SODIUM 140 mmol/L (136-145)
[2022-05-18 10:18] LABS: ALKALINE PHOSPHATASE 117 U/L (45-117); TOTAL PROTEIN 7.6 gm/dL (6.4-8.2); TRIGLYCERIDES 249 mg/dl (<150)
[2022-05-18 10:19] LABS: LDL CHOLESTEROL 43 mg/dL (9-159)
== END | disposition home or self-care (01) ==
LOC: LAB 09:05
PROVIDERS: ATTEND Orthopaedic Surgery
DX: I10 Essential (primary) hypertension (principal); F32.9 Major depressive disorder, single episode, unspecified; G89.29 Other chronic pain; Z86.39 Personal history of other endocrine, nutritional and metabolic disease; Z79.899 Other long term (current) drug therapy

== ENCOUNTER → 2022-06-05 | Outpatient (CLI) | payer OTHER | END | disposition home or self-care (01) | LOC: US 11:00 | PROVIDERS: ATTEND Nurse Practitioner Family | DX: I10 Essential (primary) hypertension (principal); N95.0 Postmenopausal bleeding; K59.09 Other constipation; E11.65 Type 2 diabetes mellitus with hyperglycemia; R93.89 Abnormal findings on diagnostic imaging of other specified body structures ==

== ENCOUNTER → 2022-07-31 | Outpatient (CLI) | payer OTHER ==
[2022-07-31 11:36] LABS: BASO # 0.1 10*3/uL (0.0-0.1); BASO % 0.6 % (0.0-1.0); EOS # 0.6 10*3/uL (0.0-0.4); EOS % 6.6 % (1.0-4.0); HEMATOCRIT 41.7 % (37.0-47.0); LYMPH # 1.9 10*3/uL (1.3-4.4); LYMPH % 21.9 % (27.0-41.0); MEAN CELL VOLUME 86.3 fl (81.0-99.0); MEAN CORPUSCULAR HGB 27.3 pg (27.0-31.0); MEAN CORPUSCULAR HGB CONC 31.7 g/dl (33.0-37.0); MEAN PLATELET VOLUME 11.8 fl (9.6-12.3); MONO # 0.4 10*3/uL (0.1-1.0); MONO % 4.7 % (3.0-9.0); NEUT # 5.6 10*3/uL (2.3-7.9); NEUT % 65.5 % (47.0-73.0); PLATELET COUNT AUTOMATED 183 10*3/uL (130-400); RED BLOOD COUNT 4.83 10*6/uL (4.10-5.10); RED CELL DISTRI WIDTH 13.1 % (0-14.5); WHITE BLOOD COUNT 8.5 10*3/uL (4.8-10.8)
[2022-07-31 11:58] LABS: ALKALINE PHOSPHATASE 88 U/L (45-117); BUN 13 mg/dl (7-24); CHLORIDE 101 mmol/L (98-107); CREATININE 1.01 mg/dL (0.55-1.02); POTASSIUM 4.4 mmol/L (3.5-5.1); SGOT/AST 8 IU/L (3-35); SGPT/ALT 18 U/L (12-78); SODIUM 134 mmol/L (136-145); TOTAL PROTEIN 7.9 gm/dL (6.4-8.2)
== END | disposition home or self-care (01) ==
LOC: LAB 11:14
PROVIDERS: ATTEND Obstetrics & Gynecology
DX: Z01.810 Encounter for preprocedural cardiovascular examination (principal); Z01.811 Encounter for preprocedural respiratory examination; Z01.812 Encounter for preprocedural laboratory examination

== ENCOUNTER → 2023-02-02 | Outpatient (CLI) | payer OTHER | END | disposition home or self-care (01) | LOC: ORTHO 01:05 | PROVIDERS: ATTEND Orthopaedic Surgery | DX: M19.012 Primary osteoarthritis, left shoulder (principal) ==

== ENCOUNTER → 2023-02-13 | Outpatient (CLI) | payer OTHER ==
[2023-02-13 14:56] LABS: BASO # 0.1 10*3/uL (0.0-0.1); BASO % 0.6 % (0.0-1.0); EOS # 0.4 10*3/uL (0.0-0.4); EOS % 4.3 % (1.0-4.0); HEMATOCRIT 37.7 % (37.0-47.0); LYMPH # 2.2 10*3/uL (1.3-4.4); LYMPH % 23.8 % (27.0-41.0); MEAN CELL VOLUME 85.5 fl (81.0-99.0); MEAN CORPUSCULAR HGB 24.5 pg (27.0-31.0); MEAN CORPUSCULAR HGB CONC 28.6 g/dl (33.0-37.0); MEAN PLATELET VOLUME 11.6 fl (9.6-12.3); MONO # 0.4 10*3/uL (0.1-1.0); MONO % 4.5 % (3.0-9.0); NEUT % 66.4 % (47.0-73.0); PLATELET COUNT AUTOMATED 180 10*3/uL (130-400); RED BLOOD COUNT 4.41 10*6/uL (4.10-5.10); RED CELL DISTRI WIDTH 16.9 % (0-14.5); WHITE BLOOD COUNT 9.1 10*3/uL (4.8-10.8)
[2023-02-13 15:12] LABS: ALKALINE PHOSPHATASE 91 U/L (46-116); BUN 12 mg/dl (9-23); CHLORIDE 104 mmol/L (98-107); CHOLESTEROL 140 mg/dL (<200); LDL CHOLESTEROL 62 mg/dL (9-159); POTASSIUM 4.2 mmol/L (3.4-5.1); SGPT/ALT 11 U/L (10-49); TOTAL PROTEIN 7.6 gm/dL (6.0-8.0); TRIGLYCERIDES 152 mg/dl (<150)
== END | disposition home or self-care (01) ==
LOC: LAB 14:34
PROVIDERS: ATTEND Nurse Practitioner Family
DX: E11.65 Type 2 diabetes mellitus with hyperglycemia (principal); E78.2 Mixed hyperlipidemia; E53.8 Deficiency of other specified B group vitamins; I10 Essential (primary) hypertension

== ENCOUNTER → 2023-03-02 | Outpatient (CLI) | payer OTHER ==
[2023-03-02 10:14] LABS: BASO % 0.4 % (0.0-1.0); EOS # 0.4 10*3/uL (0.0-0.4); EOS % 5.4 % (1.0-4.0); HEMATOCRIT 35.1 % (37.0-47.0); LYMPH # 1.4 10*3/uL (1.3-4.4); LYMPH % 19.4 % (27.0-41.0); MEAN CORPUSCULAR HGB 24.3 pg (27.0-31.0); MEAN CORPUSCULAR HGB CONC 29.3 g/dl (33.0-37.0); MEAN PLATELET VOLUME 12.2 fl (9.6-12.3); MONO # 0.3 10*3/uL (0.1-1.0); MONO % 4.3 % (3.0-9.0); NEUT # 4.9 10*3/uL (2.3-7.9); NEUT % 69.5 % (47.0-73.0); PLATELET COUNT AUTOMATED 123 10*3/uL (130-400); RED BLOOD COUNT 4.23 10*6/uL (4.10-5.10); RED CELL DISTRI WIDTH 15.5 % (0-14.5); RETICULOCYTE % 2.29 % (0.50-2.50)
[2023-03-02 10:37] LABS: ALKALINE PHOSPHATASE 94 U/L (46-116); BUN 6 mg/dl (9-23); CHLORIDE 105 mmol/L (98-107); LDH 189 U/L (120-246); POTASSIUM 3.3 mmol/L (3.4-5.1); SGPT/ALT 8 U/L (10-49); TOTAL PROTEIN 7.1 gm/dL (6.0-8.0)
[2023-03-03 04:06] LABS: HAPTOGLOBIN 166 mg/dL (33-346)
[2023-03-03 07:07] LABS: HEPATITIS B SURFACE AB Non Reactive (.); HEPATITIS B SURFACE AG Negative (Negative)
[2023-03-05 14:07] LABS: A/G RATIO 1.3 (0.7-1.7); ALBUMIN 3.7 g/dL (2.9-4.4); ALPHA-1-GLOBULIN 0.3 g/dL (0.0-0.4); ALPHA-2-GLOBULIN 0.8 g/dL (0.4-1.0); BETA GLOBULIN 1.1 g/dL (0.7-1.3); FREE KAPPA LIGHT CHAINS 35.6 mg/L (3.3-19.4); FREE LAMBDA LIGHT CHAINS 33.3 mg/L (5.7-26.3); GAMMA GLOBULIN 0.9 g/dL (0.4-1.8); IMMUNOGLOBULIN G, QNT 1011 mg/dL (586-1602); IMMUNOGLOBULIN M, QNT 34 mg/dL (26-217); KAPPA/LAMBDA RATIO 1.07 (0.26-1.65); M-SPIKE Not Observed g/dL (Not Observed); TOTAL PROTEIN, SERUM 6.7 g/dL (6.0-8.5)
[2023-03-06 03:06] LABS: ZINC, PLASMA 47 ug/dL (44-115)
[2023-03-09 12:07] LABS: METHYLMALONIC ACID 159 nmol/L (0-378)
== END | disposition home or self-care (01) ==
LOC: TELEHEALTH 00:45 → LAB 00:45 → TELEHEALTH 15:15
PROVIDERS: ATTEND Internal Medicine
DX: D50.8 Other iron deficiency anemias (principal); J44.9 Chronic obstructive pulmonary disease, unspecified; K21.9 Gastro-esophageal reflux disease without esophagitis; E78.5 Hyperlipidemia, unspecified; F32.A Depression, unspecified; Z88.8 Allergy status to other drugs, medicaments and biological substances; Z79.82 Long term (current) use of aspirin; Z79.899 Other long term (current) drug therapy

== ENCOUNTER → 2023-03-16 | Outpatient (CLI) | payer OTHER | END | disposition home or self-care (01) | LOC: TELEHEALTH 01:41 | PROVIDERS: ATTEND Internal Medicine | DX: D50.8 Other iron deficiency anemias (principal); J44.9 Chronic obstructive pulmonary disease, unspecified; E78.5 Hyperlipidemia, unspecified; F32.A Depression, unspecified; E11.9 Type 2 diabetes mellitus without complications; Z88.8 Allergy status to other drugs, medicaments and biological substances; Z79.899 Other long term (current) drug therapy ==

== ENCOUNTER → 2023-05-17 | Outpatient (CLI) | payer OTHER ==
[2023-05-17 15:33] LABS: BASO % 0.4 % (0.0-1.0); EOS # 0.3 10*3/uL (0.0-0.4); EOS % 3.3 % (1.0-4.0); HEMATOCRIT 33.2 % (37.0-47.0); LYMPH # 1.7 10*3/uL (1.3-4.4); LYMPH % 19.1 % (27.0-41.0); MEAN CELL VOLUME 80.8 fl (81.0-99.0); MEAN CORPUSCULAR HGB 23.8 pg (27.0-31.0); MEAN CORPUSCULAR HGB CONC 29.5 g/dl (33.0-37.0); MEAN PLATELET VOLUME 10.8 fl (9.6-12.3); MONO # 0.4 10*3/uL (0.1-1.0); MONO % 4.7 % (3.0-9.0); NEUT # 6.5 10*3/uL (2.3-7.9); NEUT % 71.8 % (47.0-73.0); PLATELET COUNT AUTOMATED 144 10*3/uL (130-400); RED BLOOD COUNT 4.11 10*6/uL (4.10-5.10); RETICULOCYTE % 2.07 % (0.50-2.50)
== END | disposition home or self-care (01) ==
LOC: LAB 15:06
PROVIDERS: ATTEND Internal Medicine
DX: D50.8 Other iron deficiency anemias (principal)

== ENCOUNTER → 2023-06-15 | Outpatient (CLI) | payer OTHER | END | disposition home or self-care (01) | LOC: TELEHEALTH 01:30 | PROVIDERS: ATTEND Internal Medicine | DX: D50.8 Other iron deficiency anemias (principal); K21.9 Gastro-esophageal reflux disease without esophagitis; E78.5 Hyperlipidemia, unspecified; F32.A Depression, unspecified; I10 Essential (primary) hypertension; Z88.8 Allergy status to other drugs, medicaments and biological substances; Z79.82 Long term (current) use of aspirin; Z79.899 Other long term (current) drug therapy ==

== ENCOUNTER → 2023-08-07 | Outpatient (CLI) | payer OTHER | END | disposition home or self-care (01) | LOC: LAB 12:12 | PROVIDERS: ATTEND Nurse Practitioner Family | DX: E78.2 Mixed hyperlipidemia (principal) ==

== ENCOUNTER → 2023-08-09 | Outpatient (CLI) | payer OTHER | END | disposition home or self-care (01) | LOC: CT 00:14 | PROVIDERS: ATTEND Nurse Practitioner Family | DX: H74.8X3 Other specified disorders of middle ear and mastoid, bilateral (principal); E08.42 Diabetes mellitus due to underlying condition with diabetic polyneuropathy; I10 Essential (primary) hypertension; M53.9 Dorsopathy, unspecified; Z23 Encounter for immunization; R26.1 Paralytic gait ==

== ENCOUNTER → 2023-08-30 | Outpatient (CLI) | payer OTHER | END | disposition home or self-care (01) | LOC: LAB 09:40 | PROVIDERS: ATTEND Nurse Practitioner Family | DX: E11.65 Type 2 diabetes mellitus with hyperglycemia (principal); K59.09 Other constipation; E55.9 Vitamin D deficiency, unspecified; I10 Essential (primary) hypertension; M25.512 Pain in left shoulder; G89.29 Other chronic pain ==

== ENCOUNTER → 2023-09-14 | Outpatient (CLI) | payer OTHER ==
[2023-09-14 10:13] LABS: BASO % 0.5 % (0.0-1.0); EOS # 0.5 10*3/uL (0.0-0.4); EOS % 5.7 % (1.0-4.0); HEMATOCRIT 46.4 % (37.0-47.0); LYMPH # 1.4 10*3/uL (1.3-4.4); LYMPH % 17.5 % (27.0-41.0); MEAN CELL VOLUME 92.1 fl (81.0-99.0); MEAN CORPUSCULAR HGB 29.8 pg (27.0-31.0); MEAN CORPUSCULAR HGB CONC 32.3 g/dl (33.0-37.0); MEAN PLATELET VOLUME 11.4 fl (9.6-12.3); MONO # 0.4 10*3/uL (0.1-1.0); MONO % 4.9 % (3.0-9.0); NEUT # 5.7 10*3/uL (2.3-7.9); NEUT % 70.9 % (47.0-73.0); PLATELET COUNT AUTOMATED 187 10*3/uL (130-400); RED BLOOD COUNT 5.04 10*6/uL (4.10-5.10)
== END | disposition home or self-care (01) ==
LOC: TELEHEALTH 00:41
PROVIDERS: ATTEND Internal Medicine Hematology & Oncology
DX: D50.9 Iron deficiency anemia, unspecified (principal); J44.9 Chronic obstructive pulmonary disease, unspecified; Z79.899 Other long term (current) drug therapy

== ENCOUNTER → 2024-06-03 | Outpatient (CLI) | payer OTHER ==
[2024-06-03 11:59] LABS: MEAN CELL VOLUME 87.6 fl (81.0-99.0); MEAN CORPUSCULAR HGB 27.8 pg (27.0-31.0); MEAN CORPUSCULAR HGB CONC 31.7 g/dl (33.0-37.0); MEAN PLATELET VOLUME 10.2 fl (9.6-12.3); PLATELET COUNT AUTOMATED 253 10*3/uL (130-400); RED BLOOD COUNT 4.68 10*6/uL (4.10-5.10); WHITE BLOOD COUNT 14.3 10*3/uL (4.8-10.8)
[2024-06-03 12:02] LABS: MANUAL DIFF REFLEX YES
[2024-06-03 12:04] LABS: BILIRUBIN Negative (Negative); BLOOD 1+ (Negative); CLARITY Clear (Clear); COLOR Dark Yellow (Yellow); GLUCOSE Negative (Negative); KETONE Trace (Negative); LEUKO ESTERASE 2+ (Negative); NITRITE Negative (Negative); PH 6.5 (4.5-8.0)
[2024-06-03 12:18] LABS: TOTAL CELLS COUNTED 100 #CELLS
[2024-06-03 12:19] LABS: PLATELET SUFFICIENCY NORMAL (NORMAL)
[2024-06-03 12:34] LABS: ALKALINE PHOSPHATASE 153 U/L (46-116); BUN 9 mg/dl (9-23); CHLORIDE 102 mmol/L (98-107); CHOLESTEROL 113 mg/dL (<200); FREE T4 1.31 ng/dl (0.89-1.76); LDL CHOLESTEROL 53 mg/dL (9-159); LIPASE 22 U/L (12-53); POTASSIUM 4.7 mmol/L (3.4-5.1); SGPT/ALT 13 U/L (5-49); TOTAL PROTEIN 7.7 gm/dL (6.0-8.0); TRIGLYCERIDES 139 mg/dl (<150)
[2024-06-03 12:50] LABS: BACTERIA 2+; RBC TNTC rbc/hpf (0-2); WBC 41-50 wbc/hpf (0-5)
== END | disposition home or self-care (01) ==
LOC: LAB 11:33
PROVIDERS: ATTEND Nurse Practitioner Family
DX: C54.1 Malignant neoplasm of endometrium (principal)

== ENCOUNTER → 2024-06-17 | Outpatient (CLI) | payer OTHER ==
[2024-06-17 09:20] LABS: BASO % 0.7 % (0.0-1.0); EOS # 0.3 10*3/uL (0.0-0.4); EOS % 6.4 % (1.0-4.0); HEMATOCRIT 37.3 % (37.0-47.0); LYMPH # 1.1 10*3/uL (1.3-4.4); LYMPH % 23.7 % (27.0-41.0); MEAN CORPUSCULAR HGB CONC 30.3 g/dl (33.0-37.0); MEAN PLATELET VOLUME 10.8 fl (9.6-12.3); MONO # 0.5 10*3/uL (0.1-1.0); MONO % 10.6 % (3.0-9.0); NEUT # 2.6 10*3/uL (2.3-7.9); NEUT % 58.2 % (47.0-73.0); PLATELET COUNT AUTOMATED 149 10*3/uL (130-400); RED BLOOD COUNT 4.19 10*6/uL (4.10-5.10); RED CELL DISTRI WIDTH 14.6 % (0-14.5); WHITE BLOOD COUNT 4.5 10*3/uL (4.8-10.8)
[2024-06-17 09:33] LABS: URINE CREATININE RANDOM 77.01 mg/dL
[2024-06-17 09:51] LABS: ALKALINE PHOSPHATASE 130 U/L (46-116); BUN 8 mg/dl (9-23); CHLORIDE 103 mmol/L (98-107); CHOLESTEROL 121 mg/dL (<200); LDL CHOLESTEROL 60 mg/dL (9-159); POTASSIUM 3.9 mmol/L (3.4-5.1); SGPT/ALT 7 U/L (5-49); TOTAL PROTEIN 7.1 gm/dL (6.0-8.0); TRIGLYCERIDES 133 mg/dl (<150)
== END | disposition home or self-care (01) ==
LOC: LAB 08:44
PROVIDERS: ATTEND Nurse Practitioner Family
DX: I10 Essential (primary) hypertension (principal); E11.65 Type 2 diabetes mellitus with hyperglycemia; E78.2 Mixed hyperlipidemia; C55 Malignant neoplasm of uterus, part unspecified; Z72.0 Tobacco use

== ENCOUNTER 2024-08-14 15:35 | Emergency (ER) | payer OTHER ==
[~2024-08-14] VITALS: Ht 154.9 cm; Wt 76.2 kg
[2024-08-14] MEDS ORDERED: SODIUM CHLORIDE 0.9% 1,000 ML IV SCH (15:50)
[2024-08-14 16:04] LABS: BASO % 0.3 % (0.0-1.0); EOS % 0.1 % (1.0-4.0); LYMPH # 0.4 10*3/uL (1.3-4.4); LYMPH % 5.8 % (27.0-41.0); MEAN CELL VOLUME 87.9 fl (81.0-99.0); MEAN CORPUSCULAR HGB 27.3 pg (27.0-31.0); MEAN PLATELET VOLUME 10.7 fl (9.6-12.3); MONO # 0.6 10*3/uL (0.1-1.0); MONO % 7.6 % (3.0-9.0); NEUT # 6.2 10*3/uL (2.3-7.9); NEUT % 85.2 % (47.0-73.0); PLATELET COUNT AUTOMATED 241 10*3/uL (130-400); RED CELL DISTRI WIDTH 18.3 % (0-14.5); WHITE BLOOD COUNT 7.3 10*3/uL (4.8-10.8)
[2024-08-14 16:23] LABS: ALKALINE PHOSPHATASE 212 U/L (46-116); BUN 13 mg/dl (9-23); CHLORIDE 104 mmol/L (98-107); POTASSIUM 3.7 mmol/L (3.4-5.1); SGPT/ALT 13 U/L (5-49); TOTAL PROTEIN 6.3 gm/dL (6.0-8.0)
[2024-08-14] MEDS ORDERED: LORazepam 2 MG/ML VIAL IV ONE ×2 (16:30→17:40)
[2024-08-14] MEDS ORDERED: Vancomycin Hydrochloride 250 ML IV ONE (16:50)
[2024-08-14] MEDS ORDERED: Piperacillin Sodium/Tazobact 50 ML IV ONE (16:50)
[2024-08-14] MEDS ORDERED: SODIUM CHLORIDE 0.9% 500 ML IV ONE (17:33)
[2024-08-14] MEDS ORDERED: ACETAMINOPHEN 325 MG TAB PO ONE (18:20)
[2024-08-14 19:33] LABS: BILIRUBIN Negative (Negative); BLOOD Negative (Negative); CLARITY Clear (Clear); COLOR Yellow (Yellow); GLUCOSE Negative (Negative); KETONE Negative (Negative); LEUKO ESTERASE Negative (Negative); NITRITE Negative (Negative); PH 5.5 (4.5-8.0)
[2024-08-14] MEDS ORDERED: LORazepam 2 MG/ML VIAL ONE (19:33)
[2024-08-14 19:48] LABS: BACTERIA TRACE; RBC 0-2 rbc/hpf (0-2)
[2024-08-14] MEDS ORDERED: ACETAMINOPHEN 650 MG SUPP R ONE (23:10)
[2024-08-15] MEDS ORDERED: Ziprasidone Mesylate 20 MG VIAL IM ONE (00:50)
[2024-08-15] MEDS ORDERED: Water, Sterile 10 ML VIAL ONE (01:22)
[2024-08-15 03:22] LABS: ARTERIAL BLOOD GAS PH 7.453 (7.350-7.450); ARTERIAL BLOOD GAS PO2 107.1 mmHg (83.0-108.0)
[2024-08-15 03:27] LABS: ABG BASE EXCESS -2.5 mmol/L (-2.0-3.0)
[2024-08-15] MEDS ORDERED: Vancomycin Hydrochloride 250 ML IV ONE (03:40)
[2024-08-15] MEDS ORDERED: Piperacillin Sodium/Tazobact 50 ML IV ONE (03:40)
[2024-08-15] MEDS ORDERED: SODIUM CHLORIDE 0.9% 1,000 ML IV ONE (03:40)
[2024-08-15] MEDS ORDERED: SODIUM CHLORIDE 0.9% IV ONE (08:30)
[2024-08-15] MEDS ORDERED: ACYCLOVIR SODIUM IV ONE (08:30)
[2024-08-15] MEDS ORDERED: Meropenem 2 GM in SODIUM CHLORIDE 0.9% 100 ML IV SCH (09:00)
[2024-08-15] MEDS ORDERED: SODIUM CHLORIDE 0.9% IV SCH (10:00)
[2024-08-15] MEDS ORDERED: AMPICILLIN SODIUM IV SCH (10:00)
[2024-08-15] MEDS ORDERED: Vancomycin Hydrochloride 1,000 MG in SODIUM CHLORIDE 0.9% 250 ML IV SCH (23:00)
== END 2024-08-15 09:40 | disposition short-term general hospital (02) ==
LOC: ED 15:35
PROVIDERS: Internal Medicine
DX: A41.9 Sepsis, unspecified organism (principal); Z20.822 Contact with and (suspected) exposure to COVID-19; R65.20 Severe sepsis without septic shock; G93.41 Metabolic encephalopathy; F32.A Depression, unspecified; K21.9 Gastro-esophageal reflux disease without esophagitis; J44.9 Chronic obstructive pulmonary disease, unspecified; E11.9 Type 2 diabetes mellitus without complications; F17.210 Nicotine dependence, cigarettes, uncomplicated; Z88.8 Allergy status to other drugs, medicaments and biological substances; Z91.048 Other nonmedicinal substance allergy status; Z98.890 Other specified postprocedural states